=== PATIENT | female | born 1960 | race African-American/Black ===

== ENCOUNTER 2024-06-03 10:46 | Emergency (ER) | payer OTHER ==
[~2024-06-03] VITALS: Ht 157.5 cm; Wt 54.0 kg
[2024-06-03 10:48] VITALS: O2SAT 98
[2024-06-03] MEDS: LORAZEPAM 1MG TABLET PO ONE (12:00)
[2024-06-03] MEDS: LORAZEPAM 0.5MG TABLET PO ONE (13:45)
[2024-06-03 21:15] VITALS: BP 115/82; PULSE 70; RESP 16; TEMP 36.72516; O2SAT 99
== END 2024-06-03 21:18 | disposition home or self-care (01) ==
LOC: ER 10:46
DX: R25.1 Tremor, unspecified (principal); I10 Essential (primary) hypertension; I25.2 Old myocardial infarction; Z88.6 Allergy status to analgesic agent
CPT/HCPCS: 99283

== ENCOUNTER 2024-09-28 23:28 | Inpatient (IN) | payer OTHER ==
[~2024-09-28] VITALS: Ht 162.6 cm; Wt 90.7 kg
[2024-09-29 01:11] LABS: CHLORIDE 109 mEq/L (98-107); POTASSIUM 4.7 mEq/L (3.5-5.1); SODIUM 143 mEq/L (136-145)
[2024-09-29 01:12] LABS: CARBON DIOXIDE 28 mEq/L (21-32)
[2024-09-29 01:13] LABS: BASOPHILS % 0.5 % (0.0-2.0); CALCIUM 9.8 mg/dL (8.7-10.4); EOSINOPHILS % 0.6 % (0.0-5.0); HEMATOCRIT. 38.7 % (36.0-48.0); LYMPHOCYTES % 24.8 % (20.0-50.0); MEAN CORPUSCULAR HEMOGLOBIN 32.2 pg (28.0-32.0); MEAN CORPUSCULAR HGB CONC 33.7 g/dL (31.0-37.0); MEAN CORPUSCULAR VOLUME 95.5 fL (81.0-99.0); MEAN PLATELET VOLUME 7.9 fl (7.4-10.4); MONOCYTES % 7.9 % (2.0-8.0); NEUTROPHILS % 66.2 % (40.0-76.0); PLATELET 208 x1000/uL (130-400); RED BLOOD CELL COUNT 4.06 mill/uL (4.2-5.4); WHITE BLOOD COUNT 5.6 x1000/uL (4.5-11.0)
[2024-09-29 01:17] LABS: CREATININE 1.4 mg/dL (0.6-1.0); GLUCOSE 118 mg/dL (70-105)
[2024-09-29 01:18] LABS: TROPONIN I HIGH SENSITIVITY 10 ng/L (3.0-34); UREA NITROGEN BLOOD 24 mg/dL (9-23)
[2024-09-29 01:19] LABS: ALANINE AMINOTRANSFERASE 13 IU/L (10-49); ALBUMIN 4.6 g/dL (3.2-4.8); ASPARTATE AMINOTRANSFERASE 18 IU/L (<34)
[2024-09-29 01:20] LABS: BILIRUBIN TOTAL 0.3 mg/dL (0.1-1.0); INR 0.9; PROTEIN TOTAL 7.9 g/dL (6.0-8.3); PROTHROMBIN TIME 10.5 sec (9.6-11.0)
[2024-09-29 01:21] LABS: BILIRUBIN DIRECT < 0.1 mg/dL (<=3.0)
[2024-09-29] MEDS ORDERED: ONDANSETRON HCL 4MG/2ML INJ IV PRN (05:00)
[2024-09-29] MEDS ORDERED: CLONIDINE 0.1MG TABLET PO PRN (05:00)
[2024-09-29] MEDS ORDERED: MAGNESIUM/ALUMINUM HYDROXIDE/SIMETHICONE 30ML UDC PO PRN (05:00)
[2024-09-29] MEDS ORDERED: ACETAMINOPHEN 325MG TABLET PO PRN (05:00)
[2024-09-29] MEDS ORDERED: DOCUSATE SODIUM 100MG CAPSULE PO PRN (05:00)
[2024-09-29] MEDS ORDERED: IPRATROPIUM/ALBUTEROL 0.5-3(2.5)MG/3ML NEB HHN SCH (05:00)
[2024-09-29 09:30] VITALS: BP 155/68; PULSE 83; RESP 18; TEMP 36.50292; O2SAT 95
[2024-09-29 10:00] VITALS: BP 155/68; PULSE 72; RESP 18; TEMP 36.7516
[2024-09-29] MEDS ORDERED: PREG200C PO (11:30)
[2024-09-29] MEDS ORDERED: OXCA600T20 MT (11:30)
[2024-09-29 12:00] VITALS: BP 136/65; PULSE 74; RESP 18; TEMP 36.50292; O2SAT 96
[2024-09-29] MEDS ORDERED: AMLO10TA4 MT (13:01)
[2024-09-29 16:00] VITALS: BP 141/68; PULSE 78; RESP 18; TEMP 36.16956; O2SAT 99
[2024-09-29] MEDS: PREGABALIN 50 MG CAPSULE PO SCH (17:21)
[2024-09-29] MEDS: FUROSEMIDE 20MG TABLET PO SCH (17:22)
[2024-09-29 20:00] VITALS: BP 117/52; PULSE 81; RESP 20; TEMP 36.72516; O2SAT 98
[2024-09-29] MEDS: OXCARBAZEPINE 300MG TABLET PO SCH (22:17)
[2024-09-29] MEDS: NORTRIPTYLINE HCL 10MG CAPSULE PO SCH (22:17)
[2024-09-29] MEDS: ACETAMINOPHEN 325MG TABLET PO PRN (22:23)
[2024-09-30] VITALS: BP 120/55; PULSE 80; RESP 20; TEMP 36.61404; O2SAT 98
[2024-09-30 04:00] VITALS: BP 135/57; PULSE 73; RESP 20; TEMP 36.6696; O2SAT 100
[2024-09-30 06:58] LABS: POTASSIUM 4.2 mEq/L (3.5-5.1)
[2024-09-30 06:59] LABS: CALCIUM 9.4 mg/dL (8.7-10.4)
[2024-09-30 07:02] LABS: BASOPHILS % 0.5 % (0.0-2.0); EOSINOPHILS % 1.7 % (0.0-5.0); HEMATOCRIT. 37.7 % (36.0-48.0); HEMOGLOBIN. 12.5 g/dL (12.0-16.0); LYMPHOCYTES % 45.2 % (20.0-50.0); MEAN CORPUSCULAR HEMOGLOBIN 31.9 pg (28.0-32.0); MEAN CORPUSCULAR HGB CONC 33.1 g/dL (31.0-37.0); MEAN CORPUSCULAR VOLUME 96.4 fL (81.0-99.0); MONOCYTES % 10.4 % (2.0-8.0); NEUTROPHILS % 42.2 % (40.0-76.0); PLATELET 188 x1000/uL (130-400); RED BLOOD CELL COUNT 3.92 mill/uL (4.2-5.4); RED CELL DISTRIBUTION WIDTH 13.3 % (11.6-14.6); WHITE BLOOD COUNT 3.7 x1000/uL (4.5-11.0)
[2024-09-30 07:04] LABS: CREATININE 1.3 mg/dL (0.6-1.0)
[2024-09-30 07:05] LABS: T4 FREE 0.84 ng/dL (0.89-1.76)
[2024-09-30 07:06] LABS: THYROID STIMULATING HORMONE 1.38 uIU/mL (0.55-4.78)
[2024-09-30 07:14] LABS: HEPATITIS B SURFACE ANTIGEN NEGATIVE (Negative)
[2024-09-30 07:35] LABS: HEPATITIS C AB NON REACTIVE (Neg) (Negative)
[2024-09-30 08:00] VITALS: BP 118/56; PULSE 78; RESP 18; TEMP 36.3918; O2SAT 100
[2024-09-30] MEDS: AMLODIPINE 10MG TABLET PO SCH (08:11)
[2024-09-30 12:00] VITALS: BP 125/62; PULSE 82; RESP 18; TEMP 36.3918; TEMP 36.39180; O2SAT 100
[2024-09-30 13:24] VITALS: BP 125/62; PULSE 82; TEMP 97.5; O2SAT 100
== END 2024-09-30 14:20 | disposition home or self-care (01) | DRG 546 ==
LOC: ER 23:28 → 7EST 09-29 03:16
PROVIDERS: ADMIT Internal Medicine; ATTEND Internal Medicine
DX: M31.6 Other giant cell arteritis (principal); N17.9 Acute kidney failure, unspecified; G50.0 Trigeminal neuralgia; E78.5 Hyperlipidemia, unspecified; E03.9 Hypothyroidism, unspecified; I10 Essential (primary) hypertension; K59.00 Constipation, unspecified; Z79.899 Other long term (current) drug therapy; Z88.6 Allergy status to analgesic agent; Z86.74 Personal history of sudden cardiac arrest
CPT/HCPCS: 36415; 80048; 80061; 80076; 84439; 84443; 84484; 85025; 85651; 86705; 87340; 93005; 99285